=== PATIENT | male | born 1950 | race Caucasian/White ===

== ENCOUNTER 2022-11-08 00:43 | Emergency (ER) | payer MEDICARE, OTHER ==
--- NOTE | 2022-11-08 00:50 | ERPHSYRPT ---
- History of Present Illness Time Seen by Provider: 11/08/22 00:50 Source: patient Exam Limitations: no limitations Physician History: This is a right-handed 72-year-old white male patient of Dr. Clint aJmison who was using a potato slicer on the table when he accidentally went too far and sliced the very tip of his right index finger off. His tetanus status is not up-to-date. He could not get the bleeding to stop and therefore he came to the emergency department for evaluation, management and tetanus injection. Timing/Duration: yesterday Quality: painful Severity: mild Location: hands (Tip of the right index finger) Associated Symptoms: denies symptoms Allergies/Adverse Reactions: Penicillins Allergy (Verified 11/08/22 00:50) Home Medications: Pravastatin Sodium 40 mg PO DAILY 11/08/22 [History] lisinopriL [Lisinopril] 10 mg PO DAILY 11/08/22 [History] Travel Risk - International Travel Have you traveled outside of the country in past 3 weeks: No - Coronavirus Screening Are you exhibiting any of the following symptoms?: No Close contact with a COVID-19 positive Pt in past 14-21 Days: No - Review of Systems Constitutional: No Symptoms Eyes: No Symptoms Ears, Nose, & Throat: No Symptoms Respiratory: No Symptoms Cardiac: No Symptoms Abdominal/Gastrointestinal: No Symptoms Genitourinary Symptoms: No Symptoms Musculoskeletal: No Symptoms Skin: Other (Tissue loss tip of right index finger) Psychological: No Symptoms Endocrine: No Symptoms Hematologic/Lymphatic: No Symptoms Immunological/Allergic: No Symptoms All Other Systems: Reviewed and Negative - Past Medical History Pertinent Past Medical History: Yes - Past Surgical History Past Surgical History: Yes - Nursing Vital Signs Nursing Vital Signs: Initial Vital Signs Temperature 98.2 F 11/08/22 00:43 Pulse Rate 80 11/08/22 00:43 Respiratory Rate 16 11/08/22 00:43 Blood Pressure 152/99 11/08/22 00:43 O2 Sat by Pulse Oximetry 94 L 11/08/22 00:43 Pain Scale Pain Intensity 2 - Physical Exam General Appearance: no apparent distress, alert, anxiety Eye Exam: PERRL/EOMI, eyes nml inspection Ears, Nose, Throat Exam: normal ENT inspection, moist mucous membranes Neck Exam: normal inspection, non-tender, supple, full range of motion Respiratory Exam: airway intact, No chest tenderness, No respiratory distress Gastrointestinal/Abdomen Exam: No tenderness Back Exam: normal inspection, normal range of motion, No CVA tenderness, No vertebral tenderness Extremity Exam: normal range of motion, pelvis stable, other (Neurovascularly intact. 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 Oozing from the tip of this elliptical shaped 4 mm in shortest dimension by 6 mm in its longest dimension) Lymphatic Exam: No adenopathy SpO2 Interpretation: normal, borderline oxygenation O2 Delivery: Room Air Procedures - Additional Procedures Progress: Procedure note: Timeout was performed at 1:50 AM on 11/08/2022. The tip of the right index finger was sliced off yesterday early evening. This site was prepped with Hibiclens solution. The area then was injected with 1 cc of 1% lidocaine plain. We then used a single stick of silver nitrate to cauterize the site. Next, a pressure dressing was applied using bacitracin ointment, followed by nonstick gauze and a pressure dressing. There were no complications and the patient tolerated the procedure well. - Course Nursing assessment & vital signs reviewed: Yes Ordered Tests: Active Orders 24 hr Category Date Time Status Wound Care STAT Care 11/08/22 01:58 Active Medication Summary Discontinued Medications Generic Name Dose Route Start Last Admin Trade Name Freq PRN Reason Stop Dose Admin Bacitracin Zinc Confirm 11/08/22 01:45 Bacitracin Packet 1 Each Pckt Administered 11/08/22 01:46 Dose 1 each .ROUTE .STK-MED ONE Bacitracin Zinc 0.9 each 11/08/22 01:59 Bacitracin Packet 1 Each Pckt TP 11/08/22 02:00 STAT ONE Diphtheria/Tetanus/Acell Pertussis 0.5 ml 11/08/22 01:58 Tdap --Diph,Pertuss(Acell),Tet Vac/Pf 0.5 Ml Vial IM 11/08/22 01:59 .ONCE ONE Lidocaine HCl 5 ml 11/08/22 01:58 Lidocaine Hcl 1% 20 Ml Mdv 20 Ml Ml IJ 11/08/22 01:59 STAT ONE Silver Nitrate Confirm 11/08/22 01:44 Silver Nitrate 1 Pkt Each Administered 11/08/22 01:45 Dose 2 pkt TP .STK-MED ONE - Progress Progress: improved Progress Note: 11/08/22 02:06 Patient's medication issued this morning is 1 of low complexity. The level of complexity in the work-up performed was based on review of the patient's past medical history, medication list, drug allergy list, history of present illness and physical findings on examination. No work-up was really required on this patient. We examined the tip of the right index finger which was prepped and then anesthetized followed by cauterization and a pressure dressing was applied. There were no complications. The discharge instructions were provided to him and his spouse which included keeping the dressing on for 48 hours. Removal of the dressing on 11/11/2019 3 in the morning and then washing the area by having soapy water run over the site or to soak his finger in the soapy water daily thereafter. He is to dry the site by blot drying or using a dehairer. He is then to cover the wound after drying with antibiotic ointment of choice and a bandage. Counseled pt/family regarding: diagnosis Medical Desision Making - Independent Historian Additional History obtained from: Spouse - Discussion of managment Agreed on:: Treatment plan, need for follow-up - Diagnostic Testing Diagnostic test were ordered, analyzed, and reviewed by me: No - Risk of complications Low Risk: Low risk of morbidity from additional dx testing or treatment - Departure Departure Disposition: Home Clinical Impression: Laceration of right index finger, Amputation of tip of finger Condition: Stable Critical Care Time: No Referrals: RENALDO YANG [Primary Care Provider] - Follow up/PCP as directed Additional Instructions: Keep the current finger dressing in place until the morning of 11/10/2022. At that time may remove the dressing, soak the laceration repair site and soapy water or let the water run over the site. Each day after removing the dressing, washing then drying by blotting the site or using a dehairer, cover the site with antibiotic ointment of choice and a bandage. Use Tylenol and ibuprofen for pain control.
[2022-11-08] MEDS ORDERED: ARZOL Silver Nitrate Applicator TP ONE (01:44)
[2022-11-08] MEDS ORDERED: BACIGUENT PACKET ONE (01:45)
[2022-11-08] MEDS ORDERED: Adacel Vial IM ONE ×2 (01:58→02:23)
[2022-11-08] MEDS ORDERED: XYLOCAINE 1% HCL 20 ML MDV IJ ONE (01:58)
[2022-11-08] MEDS ORDERED: BACIGUENT PACKET TP ONE (01:59)
[2022-11-08 02:28] VITALS: O2SAT 95
[2022-11-08 02:42] VITALS: BP 129/77; PULSE 66
== END 2022-11-08 02:45 | disposition home or self-care (01) ==
LOC: ED 00:43
DX: S68.120A Partial traumatic metacarpophalangeal amputation of right index finger, initial encounter (principal); W26.0XXA Contact with knife, initial encounter; Y93.G1 Activity, food preparation and clean up; Z79.899 Other long term (current) drug therapy
CPT/HCPCS: 90471; 90715; 96372; 99283; A9270-GY